=== PATIENT | male | born 1985 | race American Indian/Alaskan Native ===

== ENCOUNTER 2016-02-28 15:31 | Emergency (ER) | payer MEDICAID ==
--- NOTE | 2016-02-28 16:36 | Emergency Department Report ---
Chief Complaint: Anxiety Stated Complaint: ANXIETY Time Seen by Provider: 02/28/16 16:30 - HPI History of Present Illness: This is a 30-year-old patient was been here several times he is complaining of depression and anxiety today. Denies suicidal or homicidal ideation denies any hallucination. Denies any pain. He takes in vagal once monthly and he said he goes to [facility]. - ROS Review of Systems: All systems are negative unless stated in HPI above - Exam Vital Signs: Vital Signs 02/28/16 02/28/16 15:52 16:07 Temperature 97.8 F 97.8 F Pulse Rate 100 H 100 H Respiratory 16 17 Rate Blood Pressure 137/82 Blood Pressure 137/82 [Right] O2 Sat by Pulse 99 100 Oximetry Physical Exam: General: This is a 30-year-old male well-nourished well-developed in no acute distress. Psych: Calm and relax. No suicidal or homicidal ideation. Negative hallucination. CV: S One, S2. Regular rate and rhythm. MSE screening note: Focused history and physical exam performed. Due to findings the following was ordered:see [facility] ED Medical Decision Making - Medical Decision Making Medical decision making: Patient seen by provider in triage area. Appropriate protocol activated and patient to main ED to be seen by physician. ED Disposition for MSE Condition: Stable
[2016-02-28 17:34] LABS: Eosinophils % (Auto) 2.6 % (0.0-4.3); Hematocrit 41.7 % (35.5-45.6); Hemoglobin 13.9 gm/dl (11.8-15.2); Mean Corpuscular HGB Conc 33 % (32-34); Mean Corpuscular Hemoglobin 30 pg (28-32); Mean Corpuscular Volume 89 fl (84-94); Platelet Count 212 K/mm3 (140-440); Red Blood Count 4.68 M/mm3 (3.65-5.03); Red Cell Distribution Width 14.4 % (13.2-15.2); White Blood Count 6.3 K/mm3 (4.5-11.0)
[2016-02-28 17:59] LABS: Alanine Aminotransferase 20 units/L (7-56); Albumin 4.1 g/dL (3.9-5); Albumin/Globulin Ratio 1.2 %; Alkaline Phosphatase 48 units/L (35-129); BUN/Creatinine Ratio 17.27; Bilirubin,Total 0.2 mg/dL (0.1-1.2); Blood Urea Nitrogen 19 mg/dL (9-20); Calcium 9.2 mg/dL (8.4-10.2); Carbon Dioxide 29 mmol/L (22-30); Chloride 101.1 mmol/L (98-107); Glucose 84 mg/dL (75-100); Potassium 4.1 mmol/L (3.6-5.0); Sodium 141 mmol/L (137-145); Total Protein 7.5 g/dL (6.3-8.2)
[2016-02-28 18:02] LABS: Anion Gap 15 mmol/L
[2016-02-28 18:36] LABS: Urine Drugs of Abuse Note Disclamer
[2016-02-28 19:24] LABS: Bilirubin,Urine NEG (Negative); Blood,Urine NEG (Negative); Ketones,Urine NEG (Negative); Leukocyte Esterase,Urine NEG (Negative); Mucus,Urine FEW /HPF; Nitrite,Urine NEG (Negative); Protein,Urine <15 mg/dL mg/dL (Negative); RBC,Urine < 1.0 /HPF (0.0-6.0); Urobilinogen,Urine < 2.0 mg/dL (<2.0)
[2016-02-29 01:37] VITALS: BP 126/85
--- NOTE | 2016-02-29 02:02 | Emergency Department Report ---
ED General Adult HPI - General Chief complaint: Anxiety Stated complaint: ANXIETY Time Seen by Provider: 02/28/16 16:30 Source: patient, RN notes reviewed, old records reviewed Mode of arrival: Ambulatory Limitations: No Limitations - History of Present Illness Initial comments: This is a 30-year-old male, whom I have evaluated in the past. He presents complaining of anxiety and depression. He is not homicidal. He is not suicidal. He does not have access to guns or firearms. He is not experiencing hallucinations. He cannot describe exacerbating or relieving factors. He denies toxic ingestions. He has no headache, neck pain, chest pain, abdominal pain or shortness of breath. -: Gradual Severity scale (0 -10): 0 Consistency: constant Improves with: none Worsens with: none Associated Symptoms: denies: chest pain, cough, diaphoresis, fever/chills, headaches, loss of appetite, malaise, nausea/vomiting, rash, shortness of breath , syncope, weakness - Related Data Previous Rx's Medication Instructions Recorded Last Taken Type chlorproMAZINE [Thorazine] 50 mg PO Q8HR #90 tab 03/13/15 Unknown Rx diphenhydrAMINE [Benadryl CAP] 50 mg PO QHS 30 Days 03/13/15 Unknown Rx risperiDONE [RisperDAL] 3 mg PO QHS 30 Days 03/13/15 Unknown Rx Divalproex ER [Depakote ER] 500 mg PO QHS #30 tablet 07/14/15 Unknown Rx Allergies Allergy/AdvReac Type Severity Reaction Status Date / Time beet Allergy Vomiting Verified 02/28/16 16:07 quetiapine fumarate Allergy Unknown Verified 02/28/16 16:07 [From Seroquel] ED Review of Systems ROS: Stated complaint: ANXIETY Other details as noted in HPI Constitutional: denies: fever, malaise Eyes: denies: vision change ENT: denies: epistaxis Respiratory: denies: cough Cardiovascular: denies: chest pain Gastrointestinal: denies: abdominal pain, nausea, diarrhea Genitourinary: denies: urgency, dysuria Musculoskeletal: denies: back pain, joint swelling, arthralgia Skin: denies: rash, lesions Neurological: denies: headache, weakness, paresthesias Psychiatric: depression. denies: homicidal thoughts, suicidal thoughts ED Past Medical Hx - Past Medical History Previous Medical History?: Yes Hx Psychiatric Treatment: Yes (bipolar, ADHD, Anxiety, Schizophrenia, Depression ) Additional medical history: autism, adhd; schizophrenia, bipolar - Surgical History Past Surgical History?: Yes Additional Surgical History: left leg surgery - Social History Smoking Status: Current Every Day Smoker Substance Use Type: Alcohol - Medications Home Medications: Home Medications Medication Instructions Recorded Confirmed Last Taken Type chlorproMAZINE [Thorazine] 50 mg PO Q8HR #90 tab 03/13/15 04/25/15 Unknown Rx diphenhydrAMINE [Benadryl CAP] 50 mg PO QHS 30 Days 03/13/15 04/25/15 Unknown Rx risperiDONE [RisperDAL] 3 mg PO QHS 30 Days 03/13/15 04/25/15 Unknown Rx Divalproex ER [Depakote ER] 500 mg PO QHS #30 tablet 07/14/15 Unknown Rx ED Physical Exam - General Limitations: No Limitations General appearance: alert, in no apparent distress - Head Head exam: Present: atraumatic, normocephalic - Eye Eye exam: Present: normal appearance, EOMI. Absent: nystagmus - ENT ENT exam: Present: normal exam, mucous membranes dry, mucous membranes moist, normal external ear exam - Neck Neck exam: Present: normal inspection, full ROM. Absent: tenderness, meningismus, lymphadenopathy, thyromegaly - Respiratory Respiratory exam: Present: normal lung sounds bilaterally. Absent: respiratory distress, wheezes, rales, rhonchi, stridor, decreased breath sounds - Cardiovascular Cardiovascular Exam: Present: regular rate, normal rhythm, normal heart sounds. Absent: bradycardia, tachycardia, irregular rhythm, systolic murmur, diastolic murmur, rubs, gallop - GI/Abdominal GI/Abdominal exam: Present: soft, normal bowel sounds. Absent: distended, tenderness, guarding, rebound, rigid, pulsatile mass - Rectal Rectal exam: Present: deferred - Extremities Exam Extremities exam: Present: normal inspection, full ROM, normal capillary refill. Absent: tenderness, pedal edema, joint swelling, calf tenderness - Back Exam Back exam: Present: normal inspection, full ROM. Absent: tenderness, CVA tenderness (R), CVA tenderness (L), muscle spasm, paraspinal tenderness, vertebral tenderness - Neurological Exam Neurological exam: Present: alert, oriented X3, normal gait, other (Extraocular movements intact. Tongue midline. No facial droop. Facial sensation intact to light touch in the V1, V2, V3 distribution bilaterally. 5 and 5 strength in 4 extremities.. Sensation is intact to light touch in 4 extremities.). Absent : motor sensory deficit - Psychiatric Psychiatric exam: Present: normal affect, normal mood - Skin Skin exam: Present: warm, dry, intact, normal color. Absent: rash ED Course Vital Signs 02/28/16 02/28/16 02/29/16 15:52 16:07 00:18 Temperature 97.8 F 97.8 F 97.8 F Pulse Rate 100 H 100 H 91 H Respiratory 16 17 20 Rate Blood Pressure 137/82 Blood Pressure 137/82 133/93 [Right] O2 Sat by Pulse 99 100 98 Oximetry 02/29/16 01:30 Temperature 98.4 F Pulse Rate 78 Respiratory 16 Rate Blood Pressure Blood Pressure 126/85 [Right] O2 Sat by Pulse 97 Oximetry - Reevaluation(s) Reevaluation #1: 02/29/16 02:57 Differential diagnosis: Mood disorder, depression, anxiety Assessment and plan: 30-year-old male with no chronic psychiatric history, with nonspecific depression and anxiety. He is afebrile with through [facility] vital signs. He has a GCS of 15, with an NIH score of 0. He is pleasant, calm and cooperative, not aggressive, has no objective indication for 1013 or involuntary hold at this time. He was seen by the psychiatric crisis professional, Mr. Ricardo Hinkle, who provided him with outpatient psychiatric resources. ED Medical Decision Making - Lab Data Result diagrams: 02/28/16 17:18 02/28/16 17:18 Vital Signs 02/28/16 02/28/16 02/29/16 15:52 16:07 00:18 Temperature 97.8 F 97.8 F 97.8 F Pulse Rate 100 H 100 H 91 H Respiratory 16 17 20 Rate Blood Pressure 137/82 Blood Pressure 137/82 133/93 [Right] O2 Sat by Pulse 99 100 98 Oximetry 02/29/16 01:30 Temperature 98.4 F Pulse Rate 78 Respiratory 16 Rate Blood Pressure Blood Pressure 126/85 [Right] O2 Sat by Pulse 97 Oximetry Lab Results 02/28/16 02/28/16 02/28/16 Range/Units 17:18 17:18 17:18 WBC 6.3 (4.5-11.0) K/mm3 RBC 4.68 (3.65-5.03) M/mm3 Hgb 13.9 (11.8-15.2) gm/dl Hct 41.7 (35.5-45.6) % MCV 89 (84-94) fl MCH 30 (28-32) pg MCHC 33 (32-34) % RDW 14.4 (13.2-15.2) % Plt Count 212 (140-440) K/mm3 Lymph % (Auto) 33.6 (13.4-35.0) % [place] % (Auto) 7.8 H (0.0-7.3) % Eos % (Auto) 2.6 (0.0-4.3) % Baso % (Auto) 1.0 (0.0-1.8) % Lymph # 2.1 (1.2-5.4) K/mm3 [place] # 0.5 (0.0-0.8) K/mm3 Eos # 0.2 (0.0-0.4) K/mm3 Baso # 0.1 (0.0-0.1) K/mm3 Seg Neutrophils % 55.0 (40.0-70.0) % Seg Neutrophils # 3.5 (1.8-7.7) K/mm3 Sodium 141 (137-145) mmol/L Potassium 4.1 (3.6-5.0) mmol/L Chloride 101.1 (98-107) mmol/L Carbon Dioxide 29 (22-30) mmol/L Anion Gap 15 mmol/L BUN 19 (9-20) mg/dL Creatinine 1.1 (0.8-1.5) mg/dL Estimated GFR > 60 ml/min BUN/Creatinine Ratio 17.27 % Glucose 84 (75-100) mg/dL Calcium 9.2 (8.4-10.2) mg/dL Total Bilirubin 0.2 (0.1-1.2) mg/dL AST 25 (5-40) units/L ALT 20 (7-56) units/L Alkaline Phosphatase 48 (35-129) units/L Total Protein 7.5 (6.3-8.2) g/dL Albumin 4.1 (3.9-5) g/dL Albumin/Globulin Ratio 1.2 % Urine Color (Yellow) Urine Turbidity (Clear) Urine pH (5.0-7.0) Ur Specific [place] (1.003-1.030) Urine Protein (Negative) mg/dL Urine Glucose (UA) (Negative) mg/dL Urine Ketones (Negative) mg/dL Urine Blood (Negative) Urine Nitrite (Negative) Urine Bilirubin (Negative) Urine Urobilinogen (<2.0) mg/dL Ur Leukocyte Esterase (Negative) Urine WBC (Auto) (0.0-6.0) /HPF Urine RBC (Auto) (0.0-6.0) /HPF Urine Mucus /HPF Urine Opiates Screen Urine Methadone Screen Ur Barbiturates Screen Ur Phencyclidine Scrn Ur Amphetamines Screen U Benzodiazepines Scrn Urine Cocaine Screen U Marijuana (THC) Screen Drugs of Abuse Note Plasma/Serum Alcohol < 0.01 (0-0.07) gm% 02/28/16 02/28/16 Range/Units 18:30 18:30 WBC (4.5-11.0) K/mm3 RBC (3.65-5.03) M/mm3 Hgb (11.8-15.2) gm/dl Hct (35.5-45.6) % MCV (84-94) fl MCH (28-32) pg MCHC (32-34) % RDW (13.2-15.2) % Plt Count (140-440) K/mm3 Lymph % (Auto) (13.4-35.0) % [place] % (Auto) (0.0-7.3) % Eos % (Auto) (0.0-4.3) % Baso % (Auto) (0.0-1.8) % Lymph # (1.2-5.4) K/mm3 [place] # (0.0-0.8) K/mm3 Eos # (0.0-0.4) K/mm3 Baso # (0.0-0.1) K/mm3 Seg Neutrophils % (40.0-70.0) % Seg Neutrophils # (1.8-7.7) K/mm3 Sodium (137-145) mmol/L Potassium (3.6-5.0) mmol/L Chloride (98-107) mmol/L Carbon Dioxide (22-30) mmol/L Anion Gap mmol/L BUN (9-20) mg/dL Creatinine (0.8-1.5) mg/dL Estimated GFR ml/min BUN/Creatinine Ratio % Glucose (75-100) mg/dL Calcium (8.4-10.2) mg/dL Total Bilirubin (0.1-1.2) mg/dL AST (5-40) units/L ALT (7-56) units/L Alkaline Phosphatase (35-129) units/L Total Protein (6.3-8.2) g/dL Albumin (3.9-5) g/dL Albumin/Globulin Ratio % Urine Color Yellow (Yellow) Urine Turbidity Clear (Clear) Urine pH 5.0 (5.0-7.0) Ur Specific [place] 1.029 (1.003-1.030) Urine Protein <15 mg/dl (Negative) mg/dL Urine Glucose (UA) Neg (Negative) mg/dL Urine Ketones Neg (Negative) mg/dL Urine Blood Neg (Negative) Urine Nitrite Neg (Negative) Urine Bilirubin Neg (Negative) Urine Urobilinogen < 2.0 (<2.0) mg/dL Ur Leukocyte Esterase Neg (Negative) Urine WBC (Auto) 1.0 (0.0-6.0) /HPF Urine RBC (Auto) < 1.0 (0.0-6.0) /HPF Urine Mucus Few /HPF Urine Opiates Screen Presumptive negative Urine Methadone Screen Presumptive negative Ur Barbiturates Screen Presumptive negative Ur Phencyclidine Scrn Presumptive negative Ur Amphetamines Screen Presumptive negative U Benzodiazepines Scrn Presumptive negative Urine Cocaine Screen Presumptive negative U Marijuana (THC) Screen Presumptive negative Drugs of Abuse Note Disclamer Plasma/Serum Alcohol (0-0.07) gm% Critical care attestation.: If time is entered above; I have spent that time in minutes in the direct care of this critically ill patient, excluding procedure time. ED Disposition Clinical Impression: Mood disorder Disposition: DISCHARGED TO HOME OR SELFCARE Is pt being admited?: No Does the pt Need Aspirin: No Condition: Stable Instructions: Mood Disorders (ED) Additional Instructions: Continue current outpatient medications. Follow up with a primary care doctor and career development specialist within the next week. Return to the ER right away with fevers or chills, chest pain or shortness of breath, homicidality or suicidality. Dr. Diana is a local primary care doctor. Referrals: PRIMARY CARE, [Primary Care Provider] - 3-5 Days [facility] DIANA MD [Staff Physician] - 3-5 Days [facility] [Provider Group] - 3-5 Days
== END 2016-02-29 05:20 | disposition home or self-care (01) ==
LOC: ED 15:31
DX: F39 Unspecified mood [affective] disorder (principal); F90.9 Attention-deficit hyperactivity disorder, unspecified type; F20.9 Schizophrenia, unspecified; F31.9 Bipolar disorder, unspecified; F84.0 Autistic disorder; F17.200 Nicotine dependence, unspecified, uncomplicated; Z91.02 Food additives allergy status; Z88.8 Allergy status to other drugs, medicaments and biological substances
CPT/HCPCS: 36415; 80053; 80307; 81001; 85025; 99284; G0480; 80320

== ENCOUNTER 2016-11-12 11:32 | Emergency (ER) | payer MEDICAID | END 2016-11-12 11:33 | disposition left against medical advice (07) | LOC: ED 11:32 | DX: F32.9 Major depressive disorder, single episode, unspecified (principal); F41.9 Anxiety disorder, unspecified; Z53.21 Procedure and treatment not carried out due to patient leaving prior to being seen by health care provider ==

== ENCOUNTER 2016-11-12 21:32 | Emergency (ER) | payer MEDICAID ==
[2016-11-12 22:22] LABS: Basophils % (Auto) 0.7 % (0.0-1.8); Eosinophils % (Auto) 2.8 % (0.0-4.3); Hematocrit 41.3 % (35.5-45.6); Hemoglobin 13.6 gm/dl (11.8-15.2); Mean Corpuscular HGB Conc 33 % (32-34); Mean Corpuscular Hemoglobin 30 pg (28-32); Mean Corpuscular Volume 89 fl (84-94); Platelet Count 225 K/mm3 (140-440); Red Blood Count 4.62 M/mm3 (3.65-5.03); Red Cell Distribution Width 14.4 % (13.2-15.2); White Blood Count 8.4 K/mm3 (4.5-11.0)
[2016-11-12 22:43] LABS: Urine Drugs of Abuse Note Disclamer
[2016-11-12 22:51] LABS: Bilirubin,Urine NEG (Negative); Blood,Urine NEG (Negative); Ketones,Urine NEG (Negative); Leukocyte Esterase,Urine NEG (Negative); Nitrite,Urine NEG (Negative); Protein,Urine <15 mg/dL mg/dL (Negative); Urobilinogen,Urine < 2.0 mg/dL (<2.0); WBC,Urine < 1.0 /HPF (0.0-6.0)
[2016-11-12 22:54] LABS: Anion Gap 20 mmol/L; BUN/Creatinine Ratio 16; Blood Urea Nitrogen 18 mg/dL (9-20); Calcium 8.9 mg/dL (8.4-10.2); Carbon Dioxide 22 mmol/L (22-30); Glucose 84 mg/dL (75-100); Potassium 4.2 mmol/L (3.6-5.0); Sodium 139 mmol/L (137-145)
--- NOTE | 2016-11-12 23:29 | Emergency Department Report ---
HPI - General Chief Complaint: Psych Time Seen by Provider: 11/12/16 22:23 - HPI HPI: This is a 31-year-old Marybeth male presents to the emergency department for evaluation for mental health. When asked why he is at the hospital this evening he says "depression, anxiety" and repeats it multiple times. He was able to tell me that he used to take Risperdal, Depakote and Thorazine but has not been on it for about one year. When I ask what is causing him depression and/or anxiety, he responds with "supernatural instincts" which she could not further explained. He appears to have a past medical history of bipolar disorder, schizophrenia, depression, anxiety, autism. He answers some questions appropriately and other times inappropriately. When asked if he was having any hallucinations he says "chlorpromazine." ED Past Medical Hx - Past Medical History Hx Psychiatric Treatment: Yes (bipolar, ADHD, Anxiety, Schizophrenia, Depression ) Additional medical history: autism, adhd; schizophrenia, bipolar - Surgical History Past Surgical History?: No Additional Surgical History: left leg surgery - Social History Smoking Status: Current Every Day Smoker Substance Use Type: None, Alcohol - Medications Home Medications: Home Medications Medication Instructions Recorded Confirmed Last Taken Type chlorproMAZINE [Thorazine] 50 mg PO Q8HR #90 tab 03/13/15 04/25/15 Unknown Rx diphenhydrAMINE [Benadryl CAP] 50 mg PO QHS 30 Days 03/13/15 04/25/15 Unknown Rx risperiDONE [RisperDAL] 3 mg PO QHS 30 Days 03/13/15 04/25/15 Unknown Rx Divalproex ER [Depakote ER] 500 mg PO QHS #30 tablet 07/14/15 Unknown Rx ED Review of Systems ROS: Stated complaint: DEPRESSION, ANXIETY Other details as noted in HPI Comment: Unobtainable due to pts medical conditions Psychiatric: anxiety, depression Physical Exam - Physical Exam Vital Signs: Vital Signs 11/12/16 21:43 Temperature 97.8 F Pulse Rate 83 Respiratory 20 Rate Blood Pressure 144/83 O2 Sat by Pulse 97 Oximetry Physical Exam: GENERAL: The patient is well-developed well-nourished. HENT: Normocephalic. Atraumatic. Patient has moist mucous membranes. EYES: Extraocular motions are intact. Pupils equal reactive to light bilaterally. NECK: Supple. Trachea is midline. CHEST/LUNGS: Clear to auscultation. There is no respiratory distress noted. HEART/CARDIOVASCULAR: Regular. There is no tachycardia. There is no gallop rub or murmur. ABDOMEN: Abdomen is soft, nontender. Patient has normal bowel sounds. There is no abdominal distention. SKIN: Skin is warm and dry. NEURO: The patient is awake, alert. The patient is cooperative. The patient has no motor or sensory deficits. MUSCULOSKELETAL: There is no tenderness or deformity. There is no limitation range of motion. There is no evidence of acute injury. PSYCH: The patient is able to answer some questions appropriately and other questions inappropriately. He has some tangential thoughts or flight of ideas. ED Course Vital Signs 11/12/16 21:43 Temperature 97.8 F Pulse Rate 83 Respiratory 20 Rate Blood Pressure 144/83 O2 Sat by Pulse 97 Oximetry ED Medical Decision Making - Lab Data Result diagrams: 11/12/16 22:03 11/12/16 22:03 - Medical Decision Making 31-year-old male presents with what appears to be a request for some medications , however it does not appear as if it been on any medication for about 1 year. He is able to give person, place and time appropriately. However when asked other questions like what is causing him depression and/or anxiety, he gives answers that do not appear to make any sense in that context. Some of his statements he just repeats over and over again. He does not appear to have any suicidal ideations. It's hard to assess if he has any hallucinations. He might have some delusions as he talks about having supernatural instincts and/ or [place]. There was a mention on the paperwork/chart that there might be a history of autism. This may be sequela of that condition, but also could represent acute psychosis and either way he does not appear to be in a condition where he is safe to be caring for himself. For this reason he has been made a 1013. His labs are unremarkable. Vital signs stable. He appears medically clear for any psychiatric placement. - Differential Diagnosis schizophrenia, bipolar disorder, autism, schizoaffective Critical Care Time: No Critical care attestation.: If time is entered above; I have spent that time in minutes in the direct care of this critically ill patient, excluding procedure time. ED Disposition Clinical Impression: Acute psychosis Disposition: [id number] PSY HOSP/PSY UNIT Is pt being admited?: No Condition: Stable Referrals: PRIMARY CARE, [Primary Care Provider] - 3-5 Days Time of Disposition: 01:31
[2016-11-13] MEDS ORDERED: HALDOL IM PRN (09:32)
[2016-11-13] MEDS ORDERED: ATIVAN IM PRN (09:32)
[2016-11-13 09:56] VITALS: BP 123/71
--- NOTE | 2016-11-13 18:42 | Consultation ---
History of Present Illness - Reason for Consult Consult date: 11/13/16 Reason for consult: Mental Health Evaluation Requesting physician: NICHOLE MERCADO - Chief Complaint Chief complaint: "Who are you" - History of Present Psychiatric Illness This is a 31-year-old Marybeth male presents to the emergency department for evaluation for mental health. Today patient is cooperative during the assessment. He stated that he came to [facility] because he's experiencing depression/ anxiety. When asked to explain his depression/anxiety, he stated, "I came here for depression and anxiety." He continue to repeat himself multiple times. His answers to questions were not logical. He stated that he hear voices "every so often." He could not say what the voices tell him. He was observed pacing in his room and talking to himself, possibly responding to internal stimuli. He stated that he receive the Invega injection monthly. Per the patient, he last received the injection 8 months ago. He denies SI/HI's and VH's. He could not confirm or deny sleep disturbance and a poor appetite. UDS is negative. Medications and Allergies Allergies Allergy/AdvReac Type Severity Reaction Status Date / Time beet Allergy Vomiting Verified 11/12/16 21:45 quetiapine fumarate Allergy Unknown Verified 11/12/16 21:45 [From Seroquel] Home Medications Medication Instructions Recorded Confirmed Last Taken Type chlorproMAZINE [Thorazine] 50 mg PO Q8HR #90 tab 03/13/15 04/25/15 Unknown Rx diphenhydrAMINE [Benadryl CAP] 50 mg PO QHS 30 Days 03/13/15 04/25/15 Unknown Rx risperiDONE [RisperDAL] 3 mg PO QHS 30 Days 03/13/15 04/25/15 Unknown Rx Divalproex ER [Depakote ER] 500 mg PO QHS #30 tablet 07/14/15 Unknown Rx Past psychiatric history - Past Medical History Past Medical History: No medical history Past Surgical History: Other (Left leg Surgery) - past Psychiatric treatment and history Psych: Bipolar, Schizophrenia psychiatric treatment history: Multiple inpatient psy services. Denies a fam psy hx. - Social History Social history: other (Homeless) Mental Status Exam - Vital signs Last Vital Signs Temp 97.9 F 11/13/16 09:55 Pulse 68 11/13/16 09:55 Resp 18 11/13/16 09:56 BP 123/71 11/13/16 09:55 Pulse Ox 98 11/13/16 09:56 - Exam Narrative exam: MSE: Appearance: cooperative Behavior: regular eye contact Speech: hyper verbal Mood: elated Affect: congruent to mood Thought Process: tangential Thought Content: denies SI/HI's and VH's, intermittent AH's Motor Activity: ambulatory Cognition: A/O x 3 Insight: limited Judgment: limited Results Result Diagrams: 11/12/16 22:03 11/12/16 22:03 Abnormal lab results 11/12/16 Range/Units 22:03 Lymph % (Auto) 38.3 H (13.4-35.0) % [place] % (Auto) 9.7 H (0.0-7.3) % All other labs normal. Assessment and Plan Assessment and plan: Impression: Historical Dx: Schizophrenia. Unspecified Psychosis. Today patient is cooperative during the assessment. Patient is disorganized. DDx: Bipolar DO, Schizoaffective DO Recommendation/Plan: Continue 1013 with placement to [facility] today. Patient receive the monthly Invega injection.
== END 2016-11-13 15:48 ==
LOC: ED 21:32 → EEVIPCON 21:32 → ED 11-13 15:48
DX: F23 Brief psychotic disorder (principal); F20.9 Schizophrenia, unspecified; F31.9 Bipolar disorder, unspecified; F41.9 Anxiety disorder, unspecified; F17.200 Nicotine dependence, unspecified, uncomplicated; Z88.8 Allergy status to other drugs, medicaments and biological substances
CPT/HCPCS: 36415; 80048; 80307; 81001; 85025; 96372; 99285; G0480; J1630; 80320